=== PATIENT | male | born 1980 | race Caucasian/White ===

== ENCOUNTER 2024-05-14 13:07 | Emergency (ER) | payer OTHER ==
[~2024-05-14] VITALS: Ht 180.3 cm; Wt 95.8 kg
[2024-05-14 13:22] VITALS: TEMP 97.6
[2024-05-14] MEDS ORDERED: ACET-2 PO (14:12)
[2024-05-14] MEDS ORDERED: AZIT-164 PO (14:12)
[2024-05-14] MEDS ORDERED: PROM25TA14 PO (14:16)
[2024-05-14] MEDS: ipratropium/albuterol 3ml nebule NEB STA (14:49)
[2024-05-14 14:54] VITALS: PULSE 69; PULSE 75; RESP 20; O2SAT 100; O2SAT 98
[2024-05-14] MEDS: dexamethasone sod phosphate 10mg/ml inj IM STA (14:54)
[2024-05-14 15:12] VITALS: BP 136/85; PULSE 86; RESP 17; O2SAT 98
== END 2024-05-14 15:14 | disposition home or self-care (01) ==
LOC: ER 13:07
DX: J20.9 Acute bronchitis, unspecified (principal); Z87.891 Personal history of nicotine dependence
CPT/HCPCS: 71046; 94640; 96372; 99283; J1100